=== PATIENT | male | born 1980 | race Caucasian/White ===

== ENCOUNTER 2017-10-02 21:54 | Inpatient (IN) | payer OTHER ==
[2017-10-02] MEDS ORDERED: Morphine 4 MG/ML VIAL ONE (22:23)
[2017-10-02] MEDS ORDERED: CEFAZOLIN 1 GM VIAL ONE (22:23)
--- NOTE | 2017-10-02 22:37 | RAD ---
ONE VIEW CHEST: 10/02/17 HISTORY: Pain, injury. COMPARISON: None. FINDINGS: Chest one view. Normal cardiac silhouette. Pulmonary vessels and hilum are normal. Costophrenic angle s are clear. No consolidation or mass. No pneumothorax or osseous abnormality. IMPRESSION: No acute cardiopulmonary process. POS: [facility]
[2017-10-02] MEDS ORDERED: Ondansetron ODT 8 MG TAB ONE (22:38)
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
[2017-10-02 22:45] LABS: #Basophils 0.2 thou/uL (0.0-0.2); #Eosinphils 0.2 thou/uL (0.0-0.7); #Lymphocytes 2.8 thou/uL (1.20-3.40); #Monocytes 0.9 thou/uL (0.11-0.59); #Neutrophils 4.8 thou/uL (1.40-6.50); %Basophils 1.8 % (0.0-1.0); %Eosinophils 1.9 % (0.0-10.0); %Lymphocytes 31.7 % (21.0-51.0); %Monocytes 9.9 % (0.0-10.0); %Neutrophils 54.7 % (42.0-75.0); Hemoglobin 15.5 g/dL (14.0-18.0); Mean Corpuscular Volume 93.9 fL (78.0-98.0); Mean Platelet Volume 7.5 fL (7.4-10.4); Platelet Count 162 thou/uL (130-400); Red Blood Cell (RBC) Count 4.84 mill/uL (4.70-6.10); White Blood Cell (WBC) Count 8.8 thou/uL (4.8-10.8)
[2017-10-02 22:54] LABS: ALT (SGPT) 22 U/L (8-55); AST (SGOT) 28 U/L (5-34); Albumin 4.5 g/dL (3.5-5.0); Alkaline Phosphatase 86 U/L (40-150); Anion Gap 12 mmol/L (10-20); BUN (Urea Nitrogen) 14 mg/dL (8.9-20.6); Bilirubin, Total 0.3 mg/dL (0.2-1.2); Calc. Creatinine Clearance 0 mL/min (70-130); Calcium 9.2 mg/dL (7.8-10.44); Carbon Dioxide 28 mmol/L (22-29); Chloride 104 mmol/L (98-107); Estimated GFR-MDRD 68; Globulin 2.6 g/dL (2.4-3.5); Glucose 109 mg/dL (70-105); Potassium 3.8 mmol/L (3.5-5.1); Protein, Total 7.1 g/dL (6.0-8.3); Sodium 140 mmol/L (136-145)
[2017-10-02 23:09] LABS: CKMB 3.4 ng/mL (0-6.6); Troponin I Less than 0.010 ng/mL (< 0.028)
[2017-10-02] MEDS ORDERED: Ketorolac Tromethamine 30 MG/ML VIAL ONE (23:28)
[2017-10-03] MEDS ORDERED: Gentamicin Sulfate 80 MG in Premix Bag 1 BAG IVPB SCH (00:45)
[2017-10-03] MEDS ORDERED: Bacitracin Zinc Ointment 30 gm TUBE ONE (00:49)
[2017-10-03] MEDS ORDERED: Sodium Chloride 0.9% 50 ML ONE (00:49)
[2017-10-03] MEDS ORDERED: Bupivacaine PF 0.5% 30 ML VIAL ONE (00:49)
[2017-10-03] MEDS ORDERED: Fentanyl 100 MCG/2 ML VIAL ONE ×4 (01:11→03:59)
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
[2017-10-03] MEDS ORDERED: PHENYLEPHRINE-NS 100 MCG/ML 10 ML SYRINGE ONE (02:36)
[2017-10-03] MEDS ORDERED: Promethazine HCl 25 MG/ML VIAL IM PRN (03:09)
[2017-10-03] MEDS ORDERED: HYDROmorphone 2 MG/ML VIAL SLOW IVP PRN (03:09)
[2017-10-03] MEDS ORDERED: Promethazine HCl 25 MG/ML VIAL SLOW IVP PRN (03:09)
[2017-10-03] MEDS ORDERED: Ondansetron HCl/PF 4 MG/2 ML Vial IVP PRN ×2 (03:09→04:33)
[2017-10-03] MEDS ORDERED: Ketorolac Tromethamine 30 MG/ML VIAL ONE ×2 (03:38)
[2017-10-03] MEDS ORDERED: Ketorolac Tromethamine 30 MG/ML VIAL IVP PRN (03:40)
[2017-10-03] MEDS ORDERED: Ondansetron HCl/PF 4 MG/2 ML Vial IV PRN (03:40)
[2017-10-03] MEDS ORDERED: TETANUS AND DIPHTHERIA TOX/PF 0.5 ML DISP.SYRIN IM SCH (03:45)
[2017-10-03] MEDS ORDERED: Communication Order-Pharmacy FS SCH (03:45)
[2017-10-03] MEDS ORDERED: traMADol HCl 50 MG TAB PO PRN ×2 (04:33)
[2017-10-03] MEDS ORDERED: Ondansetron ODT 4 MG TAB PO PRN (04:33)
[2017-10-03] MEDS ORDERED: Dextrose 5% in Water 1,000 ML IV PRN (04:33)
[2017-10-03] MEDS ORDERED: Dextrose 50% Abboject 50 ML SYRINGE SLOW IVP PRN (04:33)
[2017-10-03] MEDS ORDERED: Sodium Chloride 0.9% 1,000 ML IV SCH (04:33)
[2017-10-03] MEDS: Ibuprofen 800 MG TAB PO SCH ×3 (05:43→21:47)
[2017-10-03] MEDS: Acetaminophen 500 MG TAB PO SCH ×3 (05:51→18:28)
[2017-10-03] MEDS: Vancomycin HCl 1 GM in Premix Bag 1 BAG IVPB SCH ×3 (05:53→21:47)
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
--- NOTE | 2017-10-03 08:05 | RAD ---
2 VIEW LEFT FIFTH DIGIT LEFT HAND SERIES: Date: 10/03/17 INDICATION: Intraoperative finger pinning, left fifth digit. FINDINGS: There is a K-wire in place, overlying the distal phalanx and distal aspect of the middle phalanx of t he fifth digit. The digit is fully extended. IMPRESSION: Intraoperative views for pinning of the fifth digit. POS: [facility]
[2017-10-03] MEDS ORDERED: Vancomycin HCl 1 GM in Premix Bag 1 BAG IVPB SCH (09:00)
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
[2017-10-03] MEDS: Aspirin 81 mg Enteric Coated Tablet PO SCH ×2 (09:12→21:47)
[2017-10-03] MEDS: Famotidine 20 MG TAB PO SCH ×2 (09:12→21:47)
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
[2017-10-03] MEDS: HYDROcodone/Acetaminophen 7.5/325 mg Tablet PO PRN ×2 (18:38→19:19)
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
[2017-10-04] MEDS: Acetaminophen 500 MG TAB PO SCH ×2 (00:20→00:21)
[2017-10-04] MEDS: HYDROcodone/Acetaminophen 7.5/325 mg Tablet PO PRN ×2 (05:27→09:20)
[2017-10-04] MEDS: Ibuprofen 800 MG TAB PO SCH (05:28)
[2017-10-04 06:13] LABS: Vancomycin, Trough 11.1 ug/mL
[2017-10-04] MEDS: Vancomycin HCl 1 GM in Premix Bag 1 BAG IVPB SCH (06:17)
[2017-10-04 07:50] VITALS: BP 99/53; TEMP 98.1
[2017-10-04] MEDS: Aspirin 81 mg Enteric Coated Tablet PO SCH (09:17)
[2017-10-04] MEDS: Famotidine 20 MG TAB PO SCH (09:18)
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
--- NOTE | 2017-10-05 11:17 | EKG ---
Test Reason : Blood Pressure : / mmHG Vent. Rate : 086 BPM Atrial Rate : 086 BPM P-R Int : 154 ms QRS Dur : 090 ms QT Int : 348 ms P-R-T Axes : 063 054 046 degrees QTc Int : 416 ms Normal sinus rhythm Normal ECG Confirmed by CR SPENCER M.D. ([id number]), managing editor RENAY HANNON ([id number]) on 10/05/2017 11:17:13 AM Referred By: Confirmed By:CR SPENCER M.D.
== END 2017-10-04 11:35 | disposition home or self-care (01) | DRG 513 ==
LOC: EEVIPCON 21:54 → ERS 21:54 → 3SE 10-03 04:32
PROVIDERS: ADMIT Orthopaedic Surgery Hand Surgery; ATTEND Orthopaedic Surgery Hand Surgery
PROC: 0PSV04Z Reposition Left Finger Phalanx with Internal Fixation Device, Open Approach (ICD-10-PCS; principal; 2017-10-03)
PROC: 0PBV0ZZ Excision of Left Finger Phalanx, Open Approach (ICD-10-PCS; 2017-10-03)
PROC: 0LQ80ZZ Repair Left Hand Tendon, Open Approach (ICD-10-PCS; 2017-10-03)
DX: S63.247A Subluxation of distal interphalangeal joint of left little finger, initial encounter (principal); S66.327A Laceration of extensor muscle, fascia and tendon of left little finger at wrist and hand level, initial encounter; R40.2412 Glasgow coma scale score 13-15, at arrival to emergency department; S20.219A Contusion of unspecified front wall of thorax, initial encounter; V29.9XXA Motorcycle rider (driver) (passenger) injured in unspecified traffic accident, initial encounter; G89.11 Acute pain due to trauma; F90.9 Attention-deficit hyperactivity disorder, unspecified type; S61.207A Unspecified open wound of left little finger without damage to nail, initial encounter; M54.2 Cervicalgia
CPT/HCPCS: 71045; 71260; 72050; 72125; 74177; 76001; 80053; 80202; 82553; 84484; 85025; 93005; 94760; 96365; 96375; A4216; G0390; G8987-GO-CI; G8988-GO-CI; G8989-GO-CI; J0690; J1580; J1885; J2270; J3010; J3370; J3490; Q0162; S0020